=== PATIENT | male | born 1945 | race Caucasian/White ===

== ENCOUNTER 2017-01-14 07:29 | Day surgery (SDC) | payer OTHER ==
[2017-01-14] MEDS ORDERED: TETRACAINE 0.5% OPHTH 1 DOSE AFFEYE ONE ×2 (08:00→10:27)
[2017-01-14] MEDS ORDERED: VIGAMOX 0.5% OPHTH 1 DOSE AFFEYE ONE ×5 (08:05→11:12)
[2017-01-14] MEDS ORDERED: PROLENSA OPHTH 1 DOSE AFFEYE ONE (08:16)
[2017-01-14] MEDS ORDERED: NS 500 ML IV 500 ML IV ONE (08:16)
[2017-01-14] MEDS ORDERED: ALPHAGAN-P OPHTH 1 DOSE AFFEYE ONE (08:17)
[2017-01-14] MEDS ORDERED: MYDRIACIL OPHTH 1 DOSE AFFEYE ONE ×3 (08:18→08:20)
[2017-01-14] MEDS ORDERED: CYCLOGYL 1% OPHTH 1 DOSE OP ONE ×3 (08:18→08:20)
[2017-01-14] MEDS ORDERED: AK-DILATE 2.5% OPHTH 1 DOSE OP ONE ×3 (08:18→08:20)
[2017-01-14] MEDS ORDERED: BETADINE OPHTH SOLN 5% EACHEYE ONE (10:27)
[2017-01-14] MEDS ORDERED: DUOVISC IO ONE (10:46)
[2017-01-14] MEDS ORDERED: XYLOCAINE-MPF 1% IJ ONE (10:46)
[2017-01-14] MEDS ORDERED: ADRENALINE CHL INJ IJ ONE (10:46)
[2017-01-14] MEDS ORDERED: BSS OPHTH (PLAIN) 500 ML with VANCOMYCIN HCL 500 MG VIAL 25 MG, ADRENALINE CHL INJ 1 MG IR ONE ×3 (10:46)
[2017-01-14 11:46] VITALS: BP 165/88
[2017-01-14] MEDS ORDERED: VERSED ONE (15:41)
[2017-01-14] MEDS ORDERED: DIPRIVAN VIAL ONE (15:41)
== END 2017-01-14 11:35 | disposition home or self-care (01) ==
LOC: SURG1 07:29
PROVIDERS: ATTEND Ophthalmology
PROC: 08DK3ZZ Extraction of Left Lens, Percutaneous Approach (ICD-10-PCS; principal; 2017-01-14 12:00)
PROC: 08RK3JZ Replacement of Left Lens with Synthetic Substitute, Percutaneous Approach (ICD-10-PCS; principal; 2017-01-14 12:00)
DX: H25.12 Age-related nuclear cataract, left eye (principal); H25.012 Cortical age-related cataract, left eye; H52.222 Regular astigmatism, left eye
CPT/HCPCS: 99100; A4217; J0170; J2250; J3370; J3490

== ENCOUNTER 2017-02-04 07:05 | Day surgery (SDC) | payer OTHER ==
[2017-02-04] MEDS ORDERED: TETRACAINE 0.5% OPHTH 1 DOSE AFFEYE ONE ×3 (07:17→09:14)
[2017-02-04] MEDS ORDERED: NS 500 ML IV 500 ML IV ONE (07:18)
[2017-02-04] MEDS ORDERED: VIGAMOX 0.5% OPHTH 1 DOSE AFFEYE ONE ×5 (07:20→09:30)
[2017-02-04] MEDS ORDERED: PROLENSA OPHTH 1 DOSE AFFEYE ONE (07:32)
[2017-02-04] MEDS ORDERED: ALPHAGAN-P OPHTH 1 DOSE AFFEYE ONE (07:34)
[2017-02-04] MEDS ORDERED: CYCLOGYL 1% OPHTH 1 DOSE OP ONE ×4 (07:35→07:50)
[2017-02-04] MEDS ORDERED: AK-DILATE 2.5% OPHTH 1 DOSE OP ONE ×4 (07:35→07:50)
[2017-02-04] MEDS ORDERED: MYDRIACIL OPHTH 1 DOSE AFFEYE ONE ×4 (07:35→07:50)
[2017-02-04] MEDS ORDERED: BETADINE OPHTH SOLN 5% EACHEYE ONE (09:07)
[2017-02-04] MEDS ORDERED: BSS OPHTH (PLAIN) 500 ML with VANCOMYCIN HCL 500 MG VIAL 25 MG, ADRENALINE CHL INJ 1 MG IR ONE ×3 (09:14)
[2017-02-04] MEDS ORDERED: ADRENALINE CHL INJ IJ ONE (09:14)
[2017-02-04] MEDS ORDERED: XYLOCAINE-MPF 1% IJ ONE (09:14)
[2017-02-04] MEDS ORDERED: DUOVISC IO ONE (09:14)
[2017-02-04] MEDS ORDERED: DIPRIVAN VIAL ONE (09:42)
[2017-02-04] MEDS ORDERED: VERSED ONE (09:42)
[2017-02-04 09:55] VITALS: BP 126/59
== END 2017-02-04 09:50 | disposition home or self-care (01) ==
LOC: SURG1 07:05
PROVIDERS: ATTEND Ophthalmology
PROC: 08RJ3JZ Replacement of Right Lens with Synthetic Substitute, Percutaneous Approach (ICD-10-PCS; principal; 2017-02-04 09:45)
PROC: 08DJ3ZZ Extraction of Right Lens, Percutaneous Approach (ICD-10-PCS; principal; 2017-02-04 09:45)
DX: H25.11 Age-related nuclear cataract, right eye (principal); H25.011 Cortical age-related cataract, right eye; H52.221 Regular astigmatism, right eye
CPT/HCPCS: 99100; A4217; J0170; J2250; J3370; J3490